=== PATIENT | female | born 1960 | race African-American/Black ===

== ENCOUNTER 2016-05-12 11:02 | Emergency (ER) | payer OTHER ==
[2016-05-12 11:11] VITALS: BP 141/81; PULSE 78; TEMP 97.4; BMI 48.4
[2016-05-12] MEDS ORDERED: ALBUTEROL SO4 2.5/IPRATROPIUM 0.5 INH SOL 3 ML VIAL.NEB. NEB ONE (13:54)
[2016-05-12] MEDS ORDERED: IBUPROFEN 600 MG TABLET (FP) PO ONE ×2 (13:54→14:30)
--- NOTE | 2016-05-12 13:57 | PDOC ---
History of Present Illness - General Chief Complaint: Hemoptysis Stated Complaint: COUGHING BLOOD Time Seen by Provider: 05/12/16 13:46 History Source: Patient Exam Limitations: No Limitations - History of Present Illness Initial Comments: 05/12/16 13:55 56 yr female with c/o cough for one week pain with coughing today coughed up blood tinged sputum. no fever or chills. no shortness of breath. Pt has obesity , HTN, DM, gout, high cholesterol. Timing/Duration: reports: constant, week Severity: reports: moderate Possible Cause: Yes: no prior episodes Past History - Past Medical History Allergies/Adverse Reactions: Allergies Allergy/AdvReac Type Severity Reaction Status Date / Time acetaminophen [From Percocet] AdvReac Verified 05/12/16 11:11 codeine AdvReac Verified 05/12/16 11:11 oxycodone HCl [From Percocet] AdvReac Verified 05/12/16 11:11 Home Medications: Ambulatory Orders Albuterol Sulfate Inhaler - [Ventolin HFA Inhaler -] 1 - 2 inh PO QID #1 inhaler 05/12/16 Benzonatate [Tessalon Pearls -] 200 mg PO TID PRN #30 cap 05/12/16 Cefuroxime Axetil [Cefuroxime] 500 mg PO BID #28 tablet 05/12/16 Cancer: Yes (R BREAST) Diabetes: Yes HTN: Yes Hypercholesterolemia: Yes Other medical history: GOUT, LUPUS ANTICOAGULENT, obesity - Surgical History Abdominal Surgery: Yes (ABD HERNIA) Cholecystectomy: No (GALLSTONES) - Psycho/Social/Smoking Cessation Hx Anxiety: No Suicidal Ideation: No Smoking History: Never smoked Hx Alcohol Use: No Drug/Substance Use Hx: No Substance Use Type: None Respiratory Specific PMHX - Complaint Specific PMHX Angina: No Bronchitis: No Pneumonia: No Pulmonary Embolus: No TB (Tuberculosis): No Review of Systems - Review of Systems Able to Perform ROS?: Yes Is the patient limited Cypriot proficient: No Constitutional: No: Symptoms Reported HEENTM: Yes: Throat Pain Respiratory: Yes: Cough, Hemoptysis (blood tinged ) *Physical Exam - Vital Signs Last Vital Signs Temp Pulse Resp BP Pulse Ox 97.4 F L 78 20 141/81 97 05/12/16 11:07 05/12/16 11:07 05/12/16 11:07 05/12/16 11:07 05/12/16 11:07 - Physical Exam General Appearance: Yes: Nourished, Appropriately Dressed HEENT: positive: EOMI, COLBY, Normal ENT Inspection, TMs Normal, Pharynx Normal Neck: positive: Supple. negative: Tender Respiratory/Chest: positive: Lungs Clear, Normal Breath Sounds, Wheezing (exp). negative: Chest Tender Cardiovascular: positive: Regular Rhythm, Regular Rate Gastrointestinal/Abdominal: positive: Normal Bowel Sounds, Soft Musculoskeletal: positive: Normal Inspection Extremity: positive: Normal Capillary Refill, Normal Inspection, Normal Range of Motion Integumentary: positive: Normal Color, Dry, Warm Neurologic: positive: Fully Oriented, Alert, Normal Mood/Affect, Normal Response , Motor Strength 06/11 ED Treatment Course - RADIOLOGY Radiology Studies Ordered: Category Date Time Status CHEST PA & LAT [RAD] Stat Radiology 05/12/16 13:46 Ordered Medical Decision Making - Medical Decision Making 05/12/16 13:57 cc: cough wheezing will give duoneb CXR motrin for pain 05/12/16 15:22 pt feels better after the nebulizer CXR reviewed and the results have been given to the patient. pt has apt tuesday with and will discuss the results. will treat for bronchitis. *DC/Admit/Observation/Transfer Diagnosis at time of Disposition: Bronchitis - Discharge Dispostion Disposition: HOME Condition at time of disposition: Good - Prescriptions Prescriptions: Cefuroxime Axetil [Cefuroxime] 500 mg PO BID #28 tablet Benzonatate [Tessalon Pearls -] 200 mg PO TID PRN #30 cap PRN Reason: Cough Albuterol Sulfate Inhaler - [Ventolin HFA Inhaler -] 1 - 2 inh PO QID #1 inhaler - Patient Instructions Additional Instructions: drink plenty of fluids take the medication as prescribed follow with your doctor as scheduled return if any worsening symptoms
--- NOTE | 2016-05-12 15:38 | PDOC ---
*Physical Exam - Vital Signs Last Vital Signs Temp Pulse Resp BP Pulse Ox 97.4 F L 78 20 141/81 97 05/12/16 11:07 05/12/16 11:07 05/12/16 11:07 05/12/16 11:07 05/12/16 11:07 ED Treatment Course - Medications Given in the ED: ED Medications Discontinued Medications Generic Name Dose Route Start Last Admin Trade Name Freq PRN Reason Stop Dose Admin Albuterol/Ipratropium 1 amp 05/12/16 13:54 05/12/16 14:28 Duoneb - NEB 05/12/16 13:55 1 amp ONCE ONE Administration Ibuprofen 600 mg 05/12/16 13:54 05/12/16 14:28 Motrin - PO 05/12/16 13:55 600 mg ONCE ONE Administration Medical Decision Making - Medical Decision Making 05/12/16 15:36 Patient seen and evaluated with the nurse practitioner. I agree with the overall evaluation, assessment, and management with the following summary of visit: 56-year-old female presents with blood-tinged sputum in the setting of forceful coughing from recent bronchitis. No blood clots, no chest pain or shortness of breath, no further hemoptysis. No f/c. Not on anticoagulants. VSS, O2 sat normal CXR shows old, unchanged granulomas. Feels well, will f/u with her PMD. *DC/Admit/Observation/Transfer Diagnosis at time of Disposition: Bronchitis - Discharge Dispostion Disposition: HOME Condition at time of disposition: Good - Prescriptions Prescriptions: Cefuroxime Axetil [Cefuroxime] 500 mg PO BID #28 tablet Benzonatate [Tessalon Pearls -] 200 mg PO TID PRN #30 cap PRN Reason: Cough Albuterol Sulfate Inhaler - [Ventolin HFA Inhaler -] 1 - 2 inh PO QID #1 inhaler - Referrals Referrals: Darren Meraz MD [Primary Care Provider] - - Patient Instructions Additional Instructions: drink plenty of fluids take the medication as prescribed follow with your doctor as scheduled return if any worsening symptoms - Post Discharge Activity
== END 2016-05-12 15:37 | disposition home or self-care (01) ==
LOC: JER 11:02
PROC: 3E0F7GC Introduction of Other Therapeutic Substance into Respiratory Tract, Via Natural or Artificial Opening (ICD-10-PCS; principal; 2016-05-12)
DX: J40 Bronchitis, not specified as acute or chronic (principal); Z85.3 Personal history of malignant neoplasm of breast; I10 Essential (primary) hypertension; E78.5 Hyperlipidemia, unspecified; E66.9 Obesity, unspecified; Z68.42 Body mass index [BMI] 45.0-49.9, adult
CPT/HCPCS: 71020-TC; 99281-25

== ENCOUNTER 2017-07-05 14:32 | Emergency (ER) | payer OTHER ==
--- NOTE | 2017-07-05 14:54 | PDOC ---
Attending Attestation - Resident Resident Name: Hugo Colbert - HPI HPI: 07/05/17 18:22 pt presents to the Ed complaining of intermittent epigastric pain. Pain is sharp and stabbing, lasts for seconds and then completely resolves, and is localized to the epigastric area. - Physicial Exam PE: 07/05/17 18:32 Agree with resident exam. Abdomen is non tender to deep palpation on my exam, and is soft, without distention, guarding or rebound. - Medical Decision Making 07/05/17 18:39 Pt presents to the ED complaining of intermittent epigastric pain. History of cholecystectomy. Differential included choledocholithiasis, pancreatitis, gastritis. Will check labs and US, reassess.
[2017-07-05 15:07] VITALS: BMI 45.0
--- NOTE | 2017-07-05 15:12 | PDOC ---
History of Present Illness - General Stated Complaint: DIZZY ABD PAIN Time Seen by Provider: 07/05/17 14:50 - History of Present Illness Initial Comments: 07/05/17 15:13 Ms. Espinoza is a 57 yo female w/ pmh of obesity, HTN, DM, gout, high cholesterol, and reflux who presents complaining of a several day history of right sided abdominal pain with associated nausea. She reports she cannot relate this to anything however describes pain as radiating from RUQ to RLQ. She also endorses current headache with some lightheadedness. The patient denies chest pain, shortness of breath, and dizziness. Denies fever , chills, nausea, vomit, diarrhea and constipation. Denies dysuria, frequency, urgency and hematuria. Allergies: Percocet, codeine, oxycodone Past History - Past Medical History Allergies/Adverse Reactions: Allergies Allergy/AdvReac Type Severity Reaction Status Date / Time acetaminophen [From Percocet] AdvReac Verified 07/05/17 15:04 codeine AdvReac Verified 07/05/17 15:04 oxycodone HCl [From Percocet] AdvReac Verified 07/05/17 15:04 Home Medications: Ambulatory Orders Linaclotide [Linzess] 145 mcg PO DAILY 07/05/17 Metformin HCl [Metformin HCl ER] 1,000 mg PO BID 07/05/17 Nebivolol HCl [Bystolic] 5 mg PO DAILY 07/05/17 Omeprazole 40 mg PO DAILY 07/05/17 Simvastatin 40 mg PO DAILY 07/05/17 Cancer: Yes (R BREAST) Diabetes: Yes HTN: Yes Hypercholesterolemia: Yes - Surgical History Abdominal Surgery: Yes (ABD HERNIA) Cholecystectomy: No (GALLSTONES) - Suicide/Smoking/Psychosocial Hx Smoking History: Never smoked Hx Alcohol Use: No Drug/Substance Use Hx: No Substance Use Type: None Review of Systems - Review of Systems Comments:: 07/05/17 19:14 GENERAL/CONSTITUTIONAL: No fever or chills. No weakness. HEAD, EYES, EARS, NOSE AND THROAT: No change in vision. No ear pain or discharge. No sore throat. CARDIOVASCULAR: No chest pain or shortness of breath RESPIRATORY: No cough, wheezing, or hemoptysis. GASTROINTESTINAL: +Abdominal pain as described. No nausea, vomiting, diarrhea or constipation. GENITOURINARY: No dysuria, frequency, or change in urination. MUSCULOSKELETAL: No joint or muscle swelling or pain. No neck or back pain. SKIN: No rash NEUROLOGIC: +Dizziness/headache as described. No vertigo, loss of consciousness , or change in strength/sensation. ENDOCRINE: No increased thirst. No abnormal weight change HEMATOLOGIC/LYMPHATIC: No anemia, easy bleeding, or history of blood clots. ALLERGIC/IMMUNOLOGIC: No hives or skin allergy. *Physical Exam - Physical Exam Comments: 07/05/17 19:17 GENERAL: Awake, alert, and fully oriented, in no acute distress HEAD: No signs of trauma, normocephalic, atraumatic EYES: PERRLA, EOMI, sclera anicteric, conjunctiva clear ENT: Auricles normal inspection, hearing grossly normal, nares patent, oropharynx clear without exudates. Moist mucosa NECK: Normal ROM, supple, no lymphadenopathy, JVD, or masses LUNGS: No distress, speaks full sentences, clear to auscultation bilaterally HEART: Regular rate and rhythm, normal S1 and S2, no murmurs, rubs or gallops, peripheral pulses normal and equal bilaterally. ABDOMEN: +Epigastric abdominal pain only. Otherwise soft, normoactive bowel sounds. No guarding, no rebound. No masses EXTREMITIES: Normal inspection, Normal range of motion, no edema. No clubbing or cyanosis. NEUROLOGICAL: Cranial nerves II through XII grossly intact. Normal speech, normal gait, no focal sensorimotor deficits SKIN: Warm, Dry, normal turgor, no rashes or lesions noted. ED Treatment Course - LABORATORY CBC & Chemistry Diagram: 07/05/17 15:48 07/05/17 17:20 Medical Decision Making - Medical Decision Making 07/05/17 19:19 Ms. Espinoza is a 57 yo female w/ pmh as described who presents for evaluation of non-specific pain. Labs grossly unconcerning as below. US negative for acute process. Patient given pepcid for symptomatic relief. Informed patient of elevated creatinine and will have follow-up with PCP. Discharging to home. Laboratory Results - last 24 hr 07/05/17 07/05/17 07/05/17 15:48 15:48 17:20 WBC 6.1 RBC 4.61 Hgb 13.0 Hct 39.4 MCV 85.4 MCH 28.2 MCHC 33.0 RDW 13.7 Plt Count 249 MPV 9.0 Neutrophils % 74.9 Lymphocytes % 14.2 Monocytes % 7.1 Eosinophils % 3.2 Basophils % 0.6 Nucleated RBC % 0 Sodium Cancelled 136 Potassium Cancelled 4.7 Chloride Cancelled 106 Carbon Dioxide Cancelled 23 Anion Gap Cancelled 7 L BUN Cancelled 23 H Creatinine Cancelled 1.6 H Creat Clearance w eGFR Cancelled 33.34 Random Glucose Cancelled 78 Calcium Cancelled 8.7 Total Bilirubin Cancelled 0.4 AST Cancelled 45 H ALT Cancelled 27 Alkaline Phosphatase Cancelled 53 Creatine Kinase Cancelled 71 Troponin I Cancelled < 0.02 Total Protein Cancelled 7.5 Albumin Cancelled 3.9 Lipase Cancelled 250 *DC/Admit/Observation/Transfer Diagnosis at time of Disposition: Abdominal pain Qualifiers: Abdominal location: unspecified location Qualified Code(s): R10.9 - Unspecified abdominal pain - Discharge Dispostion Disposition: HOME - Referrals Referrals: Darren Meraz MD [Primary Care Provider] - - Patient Instructions Printed Discharge Instructions: DI for Abdominal Pain-Adult Additional Instructions: Please return to ED if any increase in pain, fever, chills, or other concerning symptoms. Follow-up with primary care provider for further evaluation of creatinine elevated to 1.6. - Post Discharge Activity
[2017-07-05] MEDS ORDERED: ACETAMINOPHEN 500 MG TABLET (FP) PO ONE (15:28)
[2017-07-05] MEDS ORDERED: SODIUM CHLORIDE 1,000 ML IV STA (15:29)
[2017-07-05] MEDS ORDERED: ACETAMINOPHEN 325 MG TABLET (FP) ONE (15:46)
[2017-07-05 15:56] LABS: BASO % 0.6 % (0-2.0); EOS % 3.2 % (0-4.5); HEMATOCRIT 39.4 % (32.4-45.2); LYMPH % 14.2 % (8-40); MCH 28.2 pg (25.7-33.7); MEAN CELL VOLUME 85.4 fl (80-96); MONO % 7.1 % (3.8-10.2); NEUT % 74.9 % (42.8-82.8); PLATELET COUNT 249 K/MM3 (134-434); RBC 4.61 M/mm3 (3.60-5.2); RDW 13.7 % (11.6-15.6); WHITE BLOOD COUNT 6.1 K/mm3 (4.0-10.0)
[2017-07-05 18:04] LABS: ALBUMIN 3.9 g/dl (3.4-5.0); ANION GAP 7 (8-16); BLOOD UREA NITROGEN 23 mg/dL (7-18); CALCIUM 8.7 mg/dL (8.5-10.1); CHLORIDE 106 mmol/L (98-107); CO2 23 mmol/L (21-32); CREATININE 1.6 mg/dL (0.55-1.02); GLUCOSE,RANDOM 78 mg/dL (74-106); POTASSIUM 4.7 mmol/L (3.5-5.1); SGOT/AST 45 U/L (15-37); SGPT/ALT 27 U/L (12-78); SODIUM 136 mmol/L (136-145)
[2017-07-05 18:09] LABS: ALK PHOS 53 U/L (45-117); BILIRUBIN,TOTAL 0.4 mg/dL (0.2-1.0); TOT PROT 7.5 g/dl (6.4-8.2)
[2017-07-05 18:12] LABS: LIPASE 250 U/L (73-393)
[2017-07-05] MEDS ORDERED: FAMOTIDINE IV 20 MG/12 ML VIAL IVPB ONE (19:19)
[2017-07-05 19:24] VITALS: BP 145/74; PULSE 66; TEMP 98.1
[2017-07-05] MEDS ORDERED: FAMOTIDINE 20 MG/50 ML IVPB 20 MG/50 ML MG IVPB ONE (19:24)
== END 2017-07-05 19:24 | disposition home or self-care (01) ==
LOC: SUPCPDRO 14:32 → JER 14:32
PROC: 3E0337Z Introduction of Electrolytic and Water Balance Substance into Peripheral Vein, Percutaneous Approach (ICD-10-PCS; principal; 2017-07-05)
PROC: 3E033GC Introduction of Other Therapeutic Substance into Peripheral Vein, Percutaneous Approach (ICD-10-PCS; 2017-07-05)
DX: R10.84 Generalized abdominal pain (principal); I10 Essential (primary) hypertension; E78.00 Pure hypercholesterolemia, unspecified; E11.9 Type 2 diabetes mellitus without complications; Z79.84 Long term (current) use of oral hypoglycemic drugs; K21.9 Gastro-esophageal reflux disease without esophagitis; M12.9 Arthropathy, unspecified; E66.9 Obesity, unspecified; Z68.42 Body mass index [BMI] 45.0-49.9, adult
CPT/HCPCS: 36415; 76700-TC; 80053; 82550; 83690; 84484; 85025; 99282-25; J7030

== ENCOUNTER → 2022-07-29 | Day surgery (SDC) | payer OTHER | END | disposition home or self-care (01) | LOC: FMAMMOTONE 08:05 | PROVIDERS: ATTEND Internal Medicine Hematology & Oncology | PROC: 0HBU3ZX Excision of Left Breast, Percutaneous Approach, Diagnostic (ICD-10-PCS; principal; 2022-07-29) | DX: N60.12 Diffuse cystic mastopathy of left breast (principal); N60.32 Fibrosclerosis of left breast; R92.0 Mammographic microcalcification found on diagnostic imaging of breast | CPT/HCPCS: 19081; 76098-TC-FY; 88305-TC ==

== ENCOUNTER 2023-01-20 12:35 | Emergency (ER) | payer OTHER ==
[2023-01-20 12:48] VITALS: BP 161/74; PULSE 65; RESP 18; TEMP 98.5; BMI 44.0
[2023-01-20] MEDS ORDERED: LIDOCAINE 4% PATCH TP ONE ×2 (13:56→14:37)
[2023-01-20] MEDS ORDERED: ACETAMINOPHEN 500 MG TABLET (FP) PO ONE (13:57)
[2023-01-20] MEDS ORDERED: ACETAMINOPHEN 500 MG TABLET (FP) ONE (14:34)
[2023-01-20 14:44] LABS: BASO % 1.2 % (0-2.0); EOS % 9.4 % (0-4.5); HEMOGLOBIN 12.4 GM/dL (10.7-15.3); LYMPH % 20.6 % (8-40); MCH 27.2 pg (25.7-33.7); MCHC 32.7 g/dl (32.0-36.0); MEAN CELL VOLUME 83.2 fl (80-96); MEAN PLT VOLUME 8.3 fl (7.5-11.1); MONO % 7.8 % (3.8-10.2); PLATELET COUNT 248 10^3/uL (134-434); RBC 4.57 M/mm3 (3.60-5.2); RDW 14.5 % (11.6-15.6)
[2023-01-20 14:56] LABS: EPI CELLS 33 /uL (0-25.1); HYALINE CASTS 1 /uL (0-3.1); URINE APPEARANCE CLOUDY; URINE BACTERIA >9,000 /uL (0-1359); URINE BILIRUBIN NEGATIVE (NEGATIVE); URINE COLOR YELLOW; URINE GLUCOSE (UA) NEGATIVE (NEGATIVE); URINE KETONE NEGATIVE (NEGATIVE); URINE LEUK ESTERASE TRACE (NEGATIVE); URINE NITRITE NEGATIVE (NEGATIVE); URINE PROTEIN 3+ (NEGATIVE); URINE WBC 141 /uL (0-25.8)
[2023-01-20 15:04] LABS: URINE RBC 30.8 /uL (0-23.9); YEAST NEGATIVE (NEGATIVE)
[2023-01-20 15:27] LABS: POTASSIUM 4.6 mmol/L (3.5-5.1)
[2023-01-20 15:30] LABS: ALBUMIN 3.1 g/dl (3.4-5.0); BLOOD UREA NITROGEN 8.8 mg/dL (7-18)
[2023-01-20 15:33] LABS: PHOSPHOROUS 3.4 mg/dL (2.5-4.9)
[2023-01-20 15:34] LABS: CREATININE 0.9 mg/dL (0.55-1.3)
[2023-01-20 15:35] LABS: BILIRUBIN,TOTAL 0.4 mg/dL (0.2-1); TOT PROT 6.8 g/dl (6.4-8.2)
[2023-01-20] MEDS ORDERED: LIDOCAINE PATCH REMOVAL MC ONE (22:00)
[2023-01-20] MEDS ORDERED: LIDOCAINE PATCH REMOVAL MC SCH (22:00)
[2023-01-21] MEDS ORDERED: LIDOCAINE 4% PATCH TP SCH (10:00)
== END 2023-01-20 17:09 | disposition home or self-care (01) ==
LOC: JER 12:35
DX: M54.50 Low back pain, unspecified (principal); M62.830 Muscle spasm of back; N39.0 Urinary tract infection, site not specified
CPT/HCPCS: 36415; 80053; 81003; 83735; 84100; 85025; 87086; 99283-25